=== PATIENT | female | born 1995 | race Caucasian/White ===

== ENCOUNTER 2023-10-31 03:40 | Inpatient (IN) ==
[2023-10-31] MEDS ORDERED: OXYTOCIN 30 UNITS/NSS 30 UNITS/500 ML BAG IV PRN ×2 (07:02→12:28)
[2023-10-31] MEDS ORDERED: LIDOCAINE 1% LOCAL 20 ML VIAL INFIL PRN (07:02)
[2023-10-31] MEDS: LACTATED RINGER'S 1,000 ML IV PRN ×2 (07:15→08:19)
[2023-10-31] MEDS ORDERED: SODIUM CHLORIDE 0.9% PF INJ 10 ML VIAL ONE (07:30)
[2023-10-31] MEDS ORDERED: fentaNYL citrate PF 100 MCG/2 ML VIAL ONE (07:30)
[2023-10-31] MEDS ORDERED: ePHEDrine sulfate 50 MG/ML AMP ONE (07:30)
[2023-10-31] MEDS ORDERED: LIDOCAINE 2%/EPINEPHRINE 1:200,000 20 ML PF ONE (07:30)
[2023-10-31] MEDS ORDERED: BUPIVACAINE 0.25% PF 30 ML VIAL ONE (07:30)
[2023-10-31] MEDS ORDERED: fentANYL 2 MCG/ML BUPIVacaine 0.125%-NSS 100ML BAG ONE (07:30)
[2023-10-31 07:31] LABS: Hematocrit (blood only) 36.9 % (37.0-47.0); Hemoglobin 12.3 g/dl (12.0-16.0); Mean Corpuscular Hemoglobin 30.8 pg (25.0-34.0); Mean Corpuscular Hgb Conc 33.3 g/dL (32.0-36.0); Mean Corpuscular Volume 92.3 fL (80.0-100.0); Platelet Count 246 K/uL (130-400); RDW Coefficient of Variation 13.2 % (11.5-14.5); White Blood Count 18.39 K/ul (4.8-10.8)
--- NOTE | 2023-10-31 07:44 | Anesthesiology Consultation ---
Date of Service October 31, 2023 Assessment & Plan Chart Review Chart Review: Acceptable Risk for Labor Epidural Consults Requested none ASA ASA2 Proposed Anesthesia Anesthesia Type: Labor Epidural Risk / Benefits Reviewed With: PT / POA / Parent / Guardian, Accepts Plan and Informed Consent Obtained History Height/Weight Height: 5 ft 2 in Weight: 73.936 kg Allergies Allergy/AdvReac Type Severity Reaction Status Date / Time pollen extracts Allergy Mild Verified 10/28/23 15:57 Medications Home Medications Medication Instructions Recorded Confirmed Last Taken prenat.vits,josey,qiv-ykaw-pdost 1 tab PO DAILY 03/10/23 10/31/23 10/30/23 ferrous sulfate 325 mg (65 mg 325 mg PO Q OTHER DAY 10/31/23 10/31/23 10/30/23 iron) tablet (iron) loratadine 10 mg tablet (Claritin) 10 mg PO DAILY 10/31/23 10/31/23 10/30/23 Exercise / Class Metabolic Activity II 4-5 Yardwork/Stairs/Walk up hill Past Family History Family History Grandfather (Maternal) Diabetes Denies family history of Ovarian cancer Breast cancer Colorectal cancer Past Surgical History Surgical History S/P tonsillectomy S/P wisdom tooth extraction Past Anesthesia History No Hx of Anesthesia Complications and No Family Hx of Anesthesia Complications History of PONV No Hx of PONV and No Hx of Motion Sickness Social History Smoking Status: Never smoker Do You Dip or Chew Tobacco: No Hx Alcohol Use: No Hx Substance Use: No Physical Exam Vital Signs Last Vital Signs Temp 97.5 F L 10/31/23 03:57 Pulse 84 10/31/23 07:38 Resp 18 10/31/23 03:57 BP 129/78 10/31/23 07:02 Pulse Ox 99 10/31/23 07:38 ENMT Mouth: no dentition abnormality Thyromental Distance: > or= 3.5 Finger Breadths Mallampati Class: II Neck normal visual inspection Respiratory normal respiratory effort Auscultation: lungs clear to auscultation bilaterally Cardiovascular Rate/Rhythm: regular rate and regular rhythm Testing Laboratory Results 10/31/23 07:14
--- NOTE | 2023-10-31 07:48 | History & Physical Report ---
Date of Service October 31, 2023 Assessment & Plan (1) Supervision of normal first : Plan: Corine is a 28-year-old G1 at 40 weeks 2 days gestational age presents in labor. 1. Fetus: Category 1 tracing 2. Labor: Progressing spontaneously will augment as needed 3. GBS negative 4. Vitals within normal range. (2) Normal labor: History of Present Illness Primary Care Provider: NO PCP Corine is a 28-year-old G1 currently at 40 weeks 2 days gestational age presents in labor. Patient was noted to have cervical change from 3 to 5 cm with labor evaluation. Noted to have gross rupture of membranes at follow-up cervical check. Denies bleeding reporting good movement. has been uncomplicated today. OB Labs: Blood Type O Positive 03/18/23 Antibody Screen NEGATIVE 03/18/23 Hemoglobin 10.8 g/dl (12.0-16.0) L 08/12/23 Hematocrit 31.9 % (37.0-47.0) L 08/12/23 Mean Corpuscular Volume 91.9 fL (80.0-100.0) 03/18/23 Platelet Count 248 K/uL (130-400) 03/18/23 Rubella IgG Antibody Immune (Immune) 03/18/23 Rapid Plasma Reagin Nonreactive (Nonreactive) 03/18/23 Hepatitis B Surface Antigen. NON-REACTIVE (NON-REACTIVE) 03/18/23 Hepatitis C Antibody (EIA) NON-REACTIVE (NON-REACTIVE) 03/18/23 HIV (1&2) Ag and Ab Confirmation NON-REACTIVE (NON-REACTIVE) 03/18/23 Glucose 1 Hour 50 gm Load 134 mg/dl (70-130) H 08/12/23 Maternal Serum Alpha Fetoprotein 57.9 ng/mL 05/20/23 OB Optional Labs: Chlamydia trachomatis RNA Not Detected (NotDetected) 03/18/23 Neisseria gonorrhoeae RNA Not Detected (NotDetected) 03/18/23 Alpha Fetoprotein Triple Screen SEE NOTE 05/20/23 Labs Reviewed: Horizon 14-negative--mln cfdna-low risk--mln afp neg--akh gbs neg--akh Allergies Allergy/AdvReac Type Severity Reaction Status Date / Time pollen extracts Allergy Mild Verified 10/28/23 15:57 Home Medications Medication Instructions Recorded Confirmed Type prenat.vits,josey,npk-hzza-xxqpt 1 tab PO DAILY 03/10/23 10/31/23 History ferrous sulfate 325 mg (65 mg 325 mg PO Q OTHER DAY 10/31/23 10/31/23 History iron) tablet (iron) loratadine 10 mg tablet (Claritin) 10 mg PO DAILY 10/31/23 10/31/23 History Patient History Surgical History S/P tonsillectomy S/P wisdom tooth extraction Family History Grandfather (Maternal) Diabetes Denies family history of Ovarian cancer Breast cancer Colorectal cancer Social History Smoking Status: Never smoker Do You Dip or Chew Tobacco: No; Hx Alcohol Use: No Hx Substance Use: No Preferred Language: Mauritian [employer] Required: No Beliefs That Will Affect Care: None marital status: marital status details: Brady Garduno (31) [phone] Current Living Situation: Spouse and Significant Other current occupational status: employed current occupation: works from home Other Information That Helps Us Care for You: No Feels Safe at Home: Yes Safety Concerns: Feels Safe At This Time Assistive Devices: Contacts Physical Exam Genitourinary: OB Exam Abdomen: + vertex Manual OB Exam: + cervical dilati on 5 cm, + cervical effacement 90%, + station -2 and + amniotic fluid clear OB Exam Monitor Tracing: + external FHT monitor used, + external uterine monitor used, + category I and + normal FHT variability; no early decelerations present, no late decelerations present and no variable decelerations Results & Data Vital Signs (Past 12 Hours) Vital Signs Temp Pulse Resp BP 10/31/23 07:02 74 129/78 10/31/23 03:57 36.4 C L 75 18 127/79 10/31/23 03:56 36.4 C L 75 18 127/79 Coding Level of Care Code None Diagnoses Encounter for supervision of normal first in third trimester Z34.03 Trimester: third trimester Normal labor O80; Z37.9 (1) Supervision of normal first Trimester: third trimester Qualified Code(s): Z34.03 - Encounter for supervision of normal first , third trimester
[2023-10-31] MEDS ORDERED: SODIUM CHLORIDE 0.9% PF INJ 10 ML VIAL EPI STA (08:03)
[2023-10-31] MEDS ORDERED: fentaNYL citrate PF 100 MCG/2 ML VIAL EPI PRN (08:03)
[2023-10-31] MEDS ORDERED: SODIUM CHLORIDE 0.9% PF INJ 10 ML VIAL EPI PRN (08:03)
[2023-10-31] MEDS ORDERED: NALBUPHINE HCL 5 MG in SYRINGE 0 ML IV PRN (08:03)
[2023-10-31] MEDS ORDERED: ePHEDrine sulfate 50 MG/ML AMP IV PRN (08:03)
[2023-10-31] MEDS ORDERED: BUPIVACAINE 0.25% PF 30 ML VIAL EPI PRN (08:03)
[2023-10-31] MEDS ORDERED: diphenhydrAMINE 50 MG/ML VIAL IV PRN (08:03)
[2023-10-31] MEDS ORDERED: BUPIVACAINE 0.25% PF 30 ML VIAL EPI STA (08:03)
[2023-10-31] MEDS ORDERED: ONDANSETRON INJ 2 MG/ML 2 ML VIAL IV PRN (08:03)
[2023-10-31] MEDS ORDERED: ROPIVACAINE 0.5% PF 5 MG/ML 20 ML VIAL EPI PRN (08:03)
[2023-10-31] MEDS ORDERED: fentANYL 2 MCG/ML BUPIVacaine 0.125%-NSS 100ML BAG EPI PRN (08:03)
[2023-10-31] MEDS ORDERED: NALOXONE HCL 0.4 MG/1 ML VIAL/CARP IV PRN (08:03)
[2023-10-31] MEDS ORDERED: fentaNYL citrate PF 100 MCG/2 ML VIAL EPI STA (08:03)
[2023-10-31] MEDS ORDERED: LIDOCAINE 2%/EPINEPHRINE 1:200,000 20 ML PF EPI STA (08:03)
[2023-10-31] MEDS ORDERED: LIDOCAINE 2% MPF LOCAL 5 ML VIAL EPI PRN (08:03)
[2023-10-31] MEDS ORDERED: NALOXONE HCL 1 MG in SODIUM CHLORIDE 0.9% 1,000 ML IV PRN (08:03)
[2023-10-31] MEDS ORDERED: miSOPROStoL 200 MCG TAB ONE (12:24)
[2023-10-31] MEDS ORDERED: METHYLERGONOVINE MALEATE 0.2 MG/ML AMP ONE (12:24)
[2023-10-31] MEDS ORDERED: OXYTOCIN 10 UNITS/ML VIAL ONE (12:25)
[2023-10-31] MEDS ORDERED: oxyCODONE/ACETAMINOPHEN 5mg/325mg TAB PO PRN (12:28)
[2023-10-31] MEDS ORDERED: BENZOCAINE 20% SPRY 85 APPLN/85 GM CAN EXT PRN (12:28)
[2023-10-31] MEDS ORDERED: miSOPROStoL 200 MCG TAB PR ONE (12:28)
[2023-10-31] MEDS ORDERED: OXYTOCIN 10 UNITS/ML 10ML VIAL IM ONE (12:28)
[2023-10-31] MEDS ORDERED: HYDROCORTISONE ACETATE 25 MG SUPP PR PRN (12:28)
[2023-10-31] MEDS ORDERED: DIPHTHERIA/TETANUS/PERTUSSIS Vaccine (Tdap, Age 7+yrs) 0.5mL SYR/VL IM ONE (12:28)
[2023-10-31] MEDS ORDERED: bisacodyL 10 MG SUPP PR PRN (12:28)
[2023-10-31] MEDS ORDERED: METHYLERGONOVINE MALEATE 0.2 MG/ML AMP IM ONE (12:28)
[2023-10-31] MEDS ORDERED: ACETAMINOPHEN 325 MG TAB PO PRN (12:28)
--- NOTE | 2023-10-31 12:35 | Delivery Summary ---
Vaginal Delivery Summary Date of Service October 31, 2023 Vaginal Delivery Summary and 1st Degree LAC Pre-operative Diagnosis: at 40 weeks labor Post-operative Diagnosis: same PPH Procedure: epidural shoulder dystocia first degree laceration and repair im pit, im methergine, pr cytotec EBL: 500cc Anesthesia: epidural Procedure: The patient presented to labor and delivery in active labor. She got an epidural and progressed to c/c/+1. The patient pushed for about one hour to . She was then unable to push the head through the introitus. Called for vacuum. Outlet vacuum applied and with one pull the head was delivered and resituted to efe, right shoulder anterior. A shoulder dystocia was then encountered that was less than one minute and resolved with Jose and suprapubic pressure. With delivery of the shoulder a pop was head. The rest of the was then delivered without difficulty. The nose and mouth were bulb suctioned. The baby was vigorous. The was placed in the maternal abdomen for drying and attention. Cord was clamped and cut at one minute of life. Cord blood and segment obtained. Placenta delivered spontaneous, intact with a three vessel cord. Cervix/sulci/rectum were intact. A first degree perineal laceration was repaired in the normal standard fashion. Patient's IV infiltrated at the time of delivery. Hemostasis obtained with IM pitocin and fundal massage, pr cytotec and IM methergine. another IV was established and dilute pitocin was then run through that open. Apgars were 8/9. Mother and baby doing well at the end of the delivery. [facility] Vaginal Delivery Charge Delivery Type Details: and 1st Degree LAC
--- NOTE | 2023-10-31 12:55 | Anesthesia Procedure Note ---
Date of Service October 31, 2023 Anesthesia Post Epidural Note Vital Signs Vital Signs: Temp Pulse Resp BP Pulse Ox 98.2 F 102 H 18 117/61 100 10/31/23 10:30 10/31/23 12:33 10/31/23 11:30 10/31/23 12:33 10/31/23 12:23 Pain Intensity Abdomen: Pain Intensity: 8 Notes Mental Status: alert / awake / arousable and participated in evaluation Nausea / Vomiting: adequately controlled Pain: adequately controlled Airway Patency, RR, SpO2: stable & adequate BP & HR: stable & adequate Hydration State: stable & adequate Neuraxial Anesthesia: was administered and sensory block is resolving Anesthetic Complications: no major complications apparent and Pt Satisfied with anesthetic care Epidural: Removed without complications and With tip intact
[2023-10-31] MEDS: IBUPROFEN 600 MG TAB PO PRN ×2 (14:27→19:08)
[2023-10-31] MEDS: DOCUSATE SODIUM 100 MG CAP PO SCH (20:48)
[2023-11-01 06:24] LABS: Hematocrit (blood only) 29.5 % (37.0-47.0); Hemoglobin 9.8 g/dl (12.0-16.0)
--- NOTE | 2023-11-01 06:30 | Obstetrical Progress Note ---
Date of Service <Nickie Milan MD - Last Filed: 11/01/23 07:12> November 01, 2023 Assessment & Plan <Nickie Milan MD - Last Filed: 11/01/23 07:12> (1) Encounter for care after hospital delivery: Patient with the above mentioned history and findings was evaluated at bedside and found awake, alert, oriented in all spheres, afebrile, and in no acute distress. Vital signs showed no fever and blood pressures remained stable. Her blood type is O positive and today's hemoglobin is adequate at 9.8 g/dL. She denies symptoms of anemia such as dizziness, fatigue, tachycardia, palpitations, or lightheadedness. She is GBS negative and Rubella immune. Overall, patient is doing well clinically and meeting the desired milestones. Will continue routine pp care. All questions were answered. <Nany Sherwood MD, FACOG - Last Filed: 11/01/23 07:37> (1) Encounter for care after hospital delivery: Subjective <Nickie Milan MD - Last Filed: 11/01/23 07:12> Corine is a 28 y/o female who is now PPD # 1 following at 40 2/7. Labor complicated by shoulder dystocia and PPH controlled with IM oxytocin, IM Methergine, and SD Cytotec. Reports feeling well overall this morning. Refers mild abdominal cramping & 3/10 pain well managed on analgesics. Voiding spontaneously without problem. Tolerating meals overnight and able to ambulate some. Has passed gas but has not yet had a bowel movement. Some persistent lochia with some improvement this morning. . Constitutional: no fever, no chills or no sweats Denies shortness of breath or difficulty breathing Cardiovascular: no chest pain or no palpitations Breast: no breast pain Genitourinary (female): no dysuria Neurologic: no headache(s) Denies changes in vision Physical Exam <Nickie Milan MD - Last Filed: 11/01/23 07:12> General: Alert. Oriented to person, time, and place. Afebrile. No acute distress. Eyes: pupils equal and reactive to light bilaterally, extraocular movements intact. Cardiac: Regular rate and rhythm, no murmurs/rubs/gallops. Respiratory: Clear to auscultation bilaterally, no wheezes/rales/rhonchi. No increased work of breathing. Symmetrical chest rise. No respiratory distress. Abdomen: Soft, nontender, nondistended. Bowel sounds present. Uterus: Uterine fundus firm, mildly tender, and palpable at umbilicus. Lower Extremities: No lower extremity edema or swelling. No deep calf pain. Jayne's negative bilaterally. Psych: Euthymic affect. Mood and affect congruence. Regular speech rate and content. Results & Data <Nickie Milan MD - Last Filed: 11/01/23 07:12> Vital Signs (Past 12 Hours) Vital Signs Temp Pulse Resp BP 11/01/23 03:17 36.7 C 76 18 113/75 10/31/23 23:30 36.8 C 77 18 112/78 10/31/23 19:10 36.5 C 88 18 116/75 Supervising Physician <Nany Sherwood MD, FACOG - Last Filed: 11/01/23 07:37> Co-Signing Physician Notes Resident Physician Supervision Note: I interviewed and examined the patient. Discussed with Dr. Milan and agree with findings and plan as documented in the note. Any exceptions or clarifications are listed here: Doing well. Is working on breast feeding. Will need to see how she does with feeding through the day. Would be desirous of d/c if all goes well. Documented By: Nany Sherwood MD, FACOG Resident Activity Tracking <Nickie Milan MD - Last Filed: 11/01/23 07:12> Resident Involvement: Resident Care Provided Care Provided: OB Delivery
[2023-11-01] MEDS ORDERED: PRENATAL VITAMIN 1 TAB PO SCH (08:00)
[2023-11-01] MEDS: IBUPROFEN 600 MG TAB PO PRN (09:05)
[2023-11-01] MEDS: DOCUSATE SODIUM 100 MG CAP PO SCH (09:06)
[2023-11-01] MEDS ORDERED: bisacodyL 5 MG TABEC PO SCH (20:00)
== END 2023-11-01 17:14 | disposition home or self-care (01) | DRG 807 ==
LOC: OPB 03:40 → 4S1 03:44 → 4E2 15:04